=== PATIENT | male | born 1975 | race Caucasian/White ===

== ENCOUNTER → 2025-02-17 09:50 | Outpatient (BNVA) | payer OTHER, SELFPAY | PROVIDERS: PCP Internal Medicine; Visit Provider Surgery ==

== ENCOUNTER 2025-05-06 08:46 | Outpatient (AMB) | payer OTHER, SELFPAY ==
--- NOTE | 2025-05-06 10:13 | A.OFFVIS_ITS ---
VS Expanded 05/06/25 10:20 Height 5 ft 10 in Weight 312 lb 2 oz BMI 44.8 Body Fat % 40.1 Body Fat Mass 125.2 Fat Free Mass 187 Visceral Fat Rating 26 Body Water % 42.7 Body Water Mass 133.2 Basal Metabolic Rate/Score 2,636 Intake Visit Reasons: [facility] [employer] [facility] Allergies No Known Allergies Allergy (Verified 05/06/25 10:13) Medication List - Last Reconciled 05/06/25 by Reji Blackmon MD lisinopril 10 mg PO DAILY multivitamin 1 tab PO DAILY [vitamin d PO] HPI HPI [facility] [facility]: Details: Start time: 10.01am, End time: 10.46am ?I spent 40 minutes speaking with the patient on the phone plus an additional 5 minutes reviewing and updating records for a total of 45 minutes HPI Comments Details: Previous weight loss efforts: self diets and exercise Wakes up: 8am, Sleeps: 12am Breakfast: often skips Lunch: 1pm (ham and cheese sandwich) Dinner: 7pm (chicken,pasta) Snacks: 4pm (chips) Exercise: home treadmill Beverages: Coffee: 3-4/wk (1 cup), Tea: none, Soda: Sugar free Powerade, rarely Sprite, Juice: 1/wk, ETOH: rarely PFSH Medical History (Updated 05/06/25 @ 10:15 by Reji Blackmon MD) Hypertension Morbid obesity Surgical History (Updated 02/17/25 @ 12:43 by Divya Hunt CMA) Hx of tooth extraction Hx of tonsillectomy Hx of appendectomy Family History (Updated 02/17/25 @ 11:17 by Divya Hunt CMA) Mother Heart problem Father No problems noted. Daughter No problems noted. Social History (Updated 02/17/25 @ 11:17 by Divya Hunt CMA) Alcohol intake: current Alcohol intake frequency: holidays/special occasions only Patient Tobacco Use Status: Former Tobacco user Telehealth Telehealth Telehealth Platform: Telephone Location of provider rendering services: practice address Location of patient: address on file Patient Identification confirmed using: Name, : Yes Telehealth method: voice only Patient verbally consented to treatment: Yes Patient verbally consented to billing insurance company: Yes Patient informed of any privacy concerns related to visit: Yes Minutes spent on Phone/Video with Pt.: 45 Assessment & Plan Assessment & Plan (1) Morbid obesity: Code(s): E66.01 - Morbid (severe) obesity due to excess calories Category: Medical Plan: 1.? Plan for lap sleeve gastrectomy. If diaphragmatic or ventral hernias are present at time of surgery, these will be repaired laparoscopically as well. I emphasized the importance of close follow-up, adherence to instructions and good communication. The surgery does not replace the need to change your lifestlyle which is the cause of the obesity problem. The surgery provides the motivation to try again to change your lifestyle, it reduces the appetite and make the transition to a better lifestyle easier and doubles the amount of weight you would lose compared to doing the lifestyle change without the surgery. You will need to be on a liquid diet with protein shakes for 2 weeks before surgery to maximize weight loss and boost your nutritional status to recover better from surgery and also for the first two weeks after surgery to let the stomach heal before we introduce other foods. After the first 2 weeks we will introduce protein bars and soft foods like scrambled eggs, cottage cheese and yogurt and after the 6th week will introduce meat, fish and cooked vegetables in small amounts. Over time you should be able to eat everything in small amounts. Side effects like nausea, vomiting, heartburn or abdominal pain are not common in the practice unless you are not following in the practice. This operation requires lifetime commitment to following in our practice and communication with me. You will much less weight and experience side effects if you don?t communicate or not following in the practice. Complications are rare and in our practice is about 1/10 of the national average. However, you can develop bleeding that may require transfusion (hasn?t happened for year in the practice), you may from complications (we did not have any deaths in the practice) and infections. Infections are usually a result of breakdown in communication or not understanding or following directions correctly. They are difficult to treat, they can happen during the first 6 weeks, they may require to be in the hospital for weeks or even months, not being able to eat by mouth and you may have drains and surgeries to try and correct the issue. Other risks and complications include possible conversion to an open procedure, leaks, small bowel obstruction, blood clots, cardiac, or pulmonary complications, as marine oil terminal superintendent complications such as ulcers, insufficient weight loss and vitamin deficiencies. 1.?Nutritional counseling. Start with one premade PREMIER protein (buy at [email or web address] or [employer]) shake (8oz of Premier and NOT the whole bottle) at 7am-9am, one protein bar (Fit Crunch or Barebell protein bar, buy at [employer], or [email or web address]) at 10am-12pm, lunch at 1pm (10 forks of protein and 10 forks of salad/vegetables), another premade PREMIER protein shake (8oz of Premier and NOT the whole bottle) at 3pm-5pm, another [employer] protein bar at 7-9pm. So you do 2 protein shakes, 2 protein bars and one meal per day. Meal to include lean meat (beef, fish, pork, turkey, chicken), or palestinian yogurt, or egg whites, or beans with a salad with olive oil and fruits (berries, pears, apples, kiwi). Avoid salt, breads, potatoes, rice, pasta, desserts. 3. Each shake would be drunk slowly, like coffee in a period of 2 hours. 4. Cut each bar in 4 pieces and eat each piece in 30min ?to make each bar last 2 hours. 5. I emphasized the importance of measuring accurately the food portion and measure it when serving the food in plate 6. The meal portions include 10 full-size forks of meat and 10 full-size forks of salad. You always eat the meat portion but you can replace up to 5 forks for salad/vegetables with rice, potatoes or pasta, or a fruit ?if you like. The less you do it the better weight loss will be. 7. One full-size fork is what it can be scooped on the fork without falling aside and not what can be bit with the fork. Use regular forks like those you find in a typical restaurant. 8.? Please buy the body composition scale we discussed and send me weight measurements as soon as possible and then once a week. Always include your diet and exercise plan. 9. Start treadmill with an incline of 2.0 and speed of 3.0. Increase incline by 1 every 3 min to a max incline of 8.0, stay 3min at 8.0 and then return to 2.0 and repeat same steps until calorie goal is met. Goal is to burn 2000 calories per week on exercise, which means either 300 calories daily, or 400 calories 5 days per week, or 500 calories 4 days per week, or 650 calories 3 days per week. Start also weight exercises with 20-30lbs for chest/shoulders/abdomen and 40- 50lbs for thighs doing 2 sets of 15 repetitions each. 11. Goal is to lose at least 1.5-2lbs per week 11. Goal to lose 10% of your weight before surgery, which is about 32lbs. Ultimate weight goal: 280lbs before surgery 12. Please follow the diet plan exactly without any change. If you don't like something about the plan or you feel hungry you need to communicate with me so I can help you revise the plan. You should not change the plan yourself 13. To be scheduled for EGD to assess the stomach's anatomy. The possibility of biopsies was discussed. Patient needs to avoid use of NSAIDs and aspirin for 1 week prior to EGD. You must be on liquids only the day before your endoscopy. Risks of perforation and bleeding was discussed with the patient. This will be an outpatient procedure with IV sedation. 14. Please do the following test: Check your heart rate at rest (at your sleep). Walk for exactly one mile distance as fast as you can and check your heart rate again as soon as you complete the mile walk. Text me the heart rate at rest and after the walk and the time in minutes and seconds that took you to complete the mile walk. You can use your smartphone's stopwatch to track accurately the time it took to walk the mile.
[2025-05-06 10:20] VITALS: BMI 44.8
== END 2025-05-06 10:47 | disposition home or self-care (01) ==
LOC: HO.HBS 08:46
PROVIDERS: PCP Internal Medicine; Visit Provider Surgery
DX: E66.01 Morbid (severe) obesity due to excess calories (principal)
CPT/HCPCS: 99204